=== PATIENT | female | born 1990 | race American Indian/Alaskan Native ===

== ENCOUNTER 2020-04-27 20:48 | Emergency (ER) | payer OTHER ==
[2020-04-27 21:09] VITALS: BP 147/101
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
== END 2020-04-27 21:50 | disposition home or self-care (01) ==
LOC: ED 20:48
DX: S46.912A Strain of unspecified muscle, fascia and tendon at shoulder and upper arm level, left arm, initial encounter (principal); S16.1XXA Strain of muscle, fascia and tendon at neck level, initial encounter; Z79.899 Other long term (current) drug therapy; V49.49XA Driver injured in collision with other motor vehicles in traffic accident, initial encounter; Y92.410 Unspecified street and highway as the place of occurrence of the external cause; Y93.89 Activity, other specified; Y99.8 Other external cause status
CPT/HCPCS: 99282